=== PATIENT | female | born 1995 | race African-American/Black ===

== ENCOUNTER 2018-03-30 20:07 | Outpatient (CLI) | payer MEDICAID ==
[2018-03-30 20:19] VITALS: BP 111/66
[2018-03-30 21:31] LABS: APPEARANCE,URINE CLOUDY; BILIRUBIN,URINE NEGATIVE (NEGATIVE); COLOR,URINE YELLOW; GLUCOSE, URINE NEGATIVE (NEGATIVE); KETONES,URINE 80 mg/dL (NEGATIVE); LEUKOCYTE ESTERASE,URINE LARGE (NEGATIVE); NITRITE,URINE NEGATIVE (NEGATIVE); PROTEIN,URINE 30 mg/dL (NEGATIVE)
[2018-03-30 21:41] LABS: URINE AMPHETAMINES SCREEN NEGATIVE; URINE BARBITURATES SCREEN NEGATIVE; URINE MARIJUANA (THC) SCREEN NEGATIVE; URINE METHADONE SCREEN NEGATIVE; URINE PHENCYCLIDINE SCREEN NEGATIVE
[2018-03-30 21:48] LABS: URINE COCAINE SCREEN UNCONFIRMED POSITIVE
[2018-03-30 21:49] LABS: URINE BENZODIAZEPINES SCREEN UNCONFIRMED POSITIVE
== END 2018-03-30 22:53 ==
LOC: EDSTATUS 20:29 → LC 20:41
PROVIDERS: ATTEND Obstetrics & Gynecology
DX: Z34.90 Encounter for supervision of normal pregnancy, unspecified, unspecified trimester (principal)
CPT/HCPCS: 80307; 81001